=== PATIENT | female | born 1970 | race American Indian/Alaskan Native ===

== ENCOUNTER 2016-03-29 11:13 | Emergency (ER) | payer MEDICARE ==
[2016-03-29 13:23] VITALS: BP 152/94
--- NOTE | 2016-03-29 13:36 | Emergency Department Report ---
Chief Complaint: Upper Respiratory Infection Stated Complaint: HYPERTENSION Time Seen by Provider: 03/29/16 13:33 - HPI History of Present Illness: Patient here reports that she was at the doctor's office this morning and she passed out. I spoke to the nurse practitioner at Dr. Naya Flores office and she can confirms that patient passed out and lost consciousness for approximately 3 minutes. She was brought to the hospital by [facility]. She says she's not feeling good for couple weeks. Denies any nausea vomiting or diarrhea. She says she has productive cough with yellow mucus. Denies any fever. Complaining of hot flashes. Denies any urinary burning frequency or urgency. Patient has a history of mental health problem. Her blood glucose is triage is 119. She has a history of diabetes, hypertension, sleep apnea, bipolar depression and anxiety., Arthritis and increased cholesterol. - ROS Review of Systems: All systems are negative unless stated in HPI above. - Exam Vital Signs: Vital Signs 03/29/16 13:05 Temperature 98.3 F Pulse Rate 97 H Respiratory 20 Rate Blood Pressure 152/94 O2 Sat by Pulse 99 Oximetry Physical Exam: General: This is a 46-year-old female well-nourished that is nontoxic in appearance. Psych: Flat affect. Lungs: Clear to auscultate bilaterally. No rhonchi wheezes or rales. Normal work of breathing. CV: S1, S2. Regular rate and rhythm. MSE screening note: Focused history and physical exam performed. Due to findings the following was ordered:see mdm ED Medical Decision Making - Medical Decision Making Medical decision making: Patient seen by provider in triage area. Appropriate protocol activated and patient to main ED to be seen by physician. ED Disposition for MSE Condition: Stable
--- NOTE | 2016-03-29 14:25 | Cat Scan Report ---
CT HEAD WITHOUT CONTRAST INDICATION: Syncope. COMPARISON: None similar at this institution. FINDINGS: Noncontrast head CT demonstrates normal ventricles and sulci without acute or recent infarct, hemorrhage, mass effect or midline shift. No abnormal extra-axial fluid collections. Few small nonspecific bilateral high parietal white white matter calcifications measuring up to 5 mm, axial series 2, image 39. Posterior fossa structures and basilar cisterns appear within normal limits. Symmetric eye globes. Rightward nasal septal bowing. Approximately 6 mm possible mucous retention cyst in the left maxillary sinus medially incompletely imaged. Approximately 3 mm possible right mid ethmoid sinus osteoma. Clear remainder paranasal sinuses and mastoid air cells. Intact calvarium. Normal overlying scalp soft tissues. Mild bilateral earrings artifact. Few radiopaque dental material incidentally noted. CONCLUSION: No acute intracranial CT abnormality with few incidental findings, as described. Thank you for the opportunity to participate in this patient's care.
[2016-03-29 15:38] LABS: Eosinophils % (Auto) 1.2 % (0.0-4.3); Hemoglobin 13.2 gm/dl (10.1-14.3); Mean Corpuscular HGB Conc 32 % (30-34); Mean Corpuscular Hemoglobin 26 pg (28-32); Mean Corpuscular Volume 82 fl (79-97); Platelet Count 350 K/mm3 (140-440); Red Blood Count 5.01 M/mm3 (3.65-5.03); Red Cell Distribution Width 15.3 % (13.2-15.2); White Blood Count 11.8 K/mm3 (4.5-11.0)
[2016-03-29 15:59] LABS: Urine Drugs of Abuse Note Disclamer
[2016-03-29 16:10] LABS: Alanine Aminotransferase 11 units/L (7-56); Albumin 4.2 g/dL (3.9-5); Albumin/Globulin Ratio 1.2 %; Alkaline Phosphatase 86 units/L (35-129); BUN/Creatinine Ratio 13.33; Bilirubin,Total 0.2 mg/dL (0.1-1.2); Blood Urea Nitrogen 8 mg/dL (7-17); Calcium 9.6 mg/dL (8.4-10.2); Carbon Dioxide 23 mmol/L (22-30); Chloride 102.7 mmol/L (98-107); Creatine Kinase 134 units/L (30-135); Glucose 161 mg/dL (65-100); Magnesium 1.9 mg/dL (1.7-2.3); Potassium 3.7 mmol/L (3.6-5.0); Sodium 141 mmol/L (137-145); Total Protein 7.7 g/dL (6.3-8.2)
[2016-03-29 16:16] LABS: Anion Gap 19 mmol/L; Creatine Kinase MB < 1.0 ng/mL (0.0-4.0)
[2016-03-29 16:17] LABS: Bilirubin,Urine NEG (Negative); Blood,Urine NEG (Negative); Ketones,Urine 20 mg/dL (Negative); Leukocyte Esterase,Urine NEG (Negative); Mucus,Urine FEW /HPF; Nitrite,Urine NEG (Negative); Protein,Urine <15 mg/dL mg/dL (Negative); Urobilinogen,Urine < 2.0 mg/dL (<2.0)
--- NOTE | 2016-03-30 09:32 | XRay Report ---
Chest 2 views: History: Cough. Findings: Normal cardiomediastinal silhouette the trachea is midline. No consolidation, pneumothorax or pleural effusion. Impression: No acute cardiopulmonary findings.
--- NOTE | 2016-03-31 18:59 | ED Elopement Review ---
ED Pt Elopement review - Results review Lab results: Laboratory Tests 03/29/16 03/29/16 03/29/16 13:16 15:17 15:17 WBC 11.8 H RBC 5.01 Hgb 13.2 Hct 41.0 MCV 82 MCH 26 L MCHC 32 RDW 15.3 H Plt Count 350 Lymph % (Auto) 29.1 Morgan % (Auto) 6.5 Eos % (Auto) 1.2 Baso % (Auto) 1.0 Lymph # 3.4 Morgan # 0.8 Eos # 0.1 Baso # 0.1 Seg Neutrophils % 62.2 Seg Neutrophils # 7.3 Sodium 141 Potassium 3.7 Chloride 102.7 Carbon Dioxide 23 Anion Gap 19 BUN 8 Creatinine 0.6 L Estimated GFR > 60 BUN/Creatinine Ratio 13.33 Glucose 161 H POC Glucose 119 H Calcium 9.6 Magnesium 1.9 Total Bilirubin 0.2 AST 13 ALT 11 Alkaline Phosphatase 86 Total Creatine Kinase 134 CK-MB (CK-2) < 1.0 CK-MB (CK-2) Rel Index 0.7 Troponin T < 0.010 Total Protein 7.7 Albumin 4.2 Albumin/Globulin Ratio 1.2 HCG, Qual Urine Color Urine Turbidity Urine pH Ur Specific [place] Urine Protein Urine Glucose (UA) Urine Ketones Urine Blood Urine Nitrite Urine Bilirubin Urine Urobilinogen Ur Leukocyte Esterase Urine WBC (Auto) Urine RBC (Auto) U Epithel Cells (Auto) Urine Mucus Urine Opiates Screen Urine Methadone Screen Ur Barbiturates Screen Ur Phencyclidine Scrn Ur Amphetamines Screen U Benzodiazepines Scrn Urine Cocaine Screen U Marijuana (THC) Screen Drugs of Abuse Note 03/29/16 03/29/16 03/29/16 15:17 15:55 15:55 WBC RBC Hgb Hct MCV MCH MCHC RDW Plt Count Lymph % (Auto) Morgan % (Auto) Eos % (Auto) Baso % (Auto) Lymph # Morgan # Eos # Baso # Seg Neutrophils % Seg Neutrophils # Sodium Potassium Chloride Carbon Dioxide Anion Gap BUN Creatinine Estimated GFR BUN/Creatinine Ratio Glucose POC Glucose Calcium Magnesium Total Bilirubin AST ALT Alkaline Phosphatase Total Creatine Kinase CK-MB (CK-2) CK-MB (CK-2) Rel Index Troponin T Total Protein Albumin Albumin/Globulin Ratio HCG, Qual Negative Urine Color Yellow Urine Turbidity Clear Urine pH 7.0 Ur Specific [place] 1.016 Urine Protein <15 mg/dl Urine Glucose (UA) Neg Urine Ketones 20 Urine Blood Neg Urine Nitrite Neg Urine Bilirubin Neg Urine Urobilinogen < 2.0 Ur Leukocyte Esterase Neg Urine WBC (Auto) 3.0 Urine RBC (Auto) 2.0 U Epithel Cells (Auto) 3.0 Urine Mucus Few Urine Opiates Screen Presumptive negative Urine Methadone Screen Presumptive negative Ur Barbiturates Screen Presumptive negative Ur Phencyclidine Scrn Presumptive negative Ur Amphetamines Screen Presumptive negative U Benzodiazepines Scrn Presumptive negative Urine Cocaine Screen Presumptive negative U Marijuana (THC) Screen Presumptive negative Drugs of Abuse Note Disclamer - Call Back decision Pt Call Back Decision: No action required
== END 2016-03-29 21:58 | disposition left against medical advice (07) ==
LOC: ED 11:13
DX: R05 Cough (principal); E11.9 Type 2 diabetes mellitus without complications; I10 Essential (primary) hypertension; F31.9 Bipolar disorder, unspecified; F41.9 Anxiety disorder, unspecified; M19.90 Unspecified osteoarthritis, unspecified site; E78.00 Pure hypercholesterolemia, unspecified; Z53.21 Procedure and treatment not carried out due to patient leaving prior to being seen by health care provider
CPT/HCPCS: 36415; 70450; 71020; 80053; 80307; 81001; 82550; 82553; 82962; 83735; 84484; 84703; 85025; 93005; 93010